=== PATIENT | female | born 1985 | race African-American/Black ===

== ENCOUNTER 2025-03-12 12:37 | Emergency (ER) | payer MEDICAID ==
[~2025-03-12] VITALS: Ht 172.7 cm; Wt 96.0 kg
[2025-03-12] MEDS ORDERED: ALBU18HF2 IH (13:07)
[2025-03-12] MEDS ORDERED: BUDE6HFA INH (13:07)
[2025-03-12] MEDS: METHYLPREDNISOLONE SOD SUCC 125MG/2ML (ACT-O-VIAL) IM ONE (13:09)
[2025-03-12 13:17] VITALS: PULSE 77; RESP 22; O2SAT 95
[2025-03-12] MEDS: ALBUTEROL (0.083%) 2.5MG/3ML NEB HHN ONE (13:17)
[2025-03-12] MEDS: IPRATROPIUM BROMIDE (0.02%) 0.5MG/2.5ML NEB HHN ONE (13:17)
[2025-03-12] MEDS ORDERED: P50 MT (14:49)
[2025-03-12 15:09] VITALS: BP 108/76; PULSE 81; RESP 16; TEMP 36.9; O2SAT 100
== END 2025-03-12 15:10 | disposition home or self-care (01) ==
LOC: ER 12:37
DX: J45.901 Unspecified asthma with (acute) exacerbation (principal); Z79.51 Long term (current) use of inhaled steroids; Z76.0 Encounter for issue of repeat prescription
CPT/HCPCS: 71045; 96372; 99283; J2919; Z7610 ×3

== ENCOUNTER 2025-08-01 13:22 | Emergency (ER) | payer MEDICAID ==
[~2025-08-01] VITALS: Ht 172.7 cm; Wt 91.0 kg
[~2025-08-01 13:22] MED LIST: ALBU18HF2 IH; BUDE6HFA INH; P50 MT
[2025-08-01] MEDS: DEXAMETHASONE 4MG TABLET PO ONE (15:02)
[2025-08-01] MEDS: ALBUTEROL (0.083%) 2.5MG/3ML NEB HHN SCH (16:07)
[2025-08-01] MEDS: IPRATROPIUM BROMIDE (0.02%) 0.5MG/2.5ML NEB HHN SCH (16:14)
[2025-08-01 16:15] VITALS: PULSE 98; RESP 20; O2SAT 98
[2025-08-01] MEDS ORDERED: ALBU18HF2 IH (17:19)
[2025-08-01] MEDS ORDERED: P50 MT (17:19)
[2025-08-01] MEDS ORDERED: BUDE6HFA INH (17:19)
[2025-08-01 17:34] VITALS: BP 115/71; PULSE 94; RESP 18; TEMP 36.7; O2SAT 98
== END 2025-08-01 17:38 | disposition home or self-care (01) ==
LOC: ER 13:22
DX: J45.901 Unspecified asthma with (acute) exacerbation (principal); Z79.899 Other long term (current) drug therapy; Z91.013 Allergy to seafood
CPT/HCPCS: 94640; 99283; J8540; Z7610 ×3; 94070; 94664